=== PATIENT | male | born 1950 | race Caucasian/White ===

== ENCOUNTER → 2017-03-04 | Outpatient (CLI) | payer MEDICARE, BC ==
[2017-03-04 15:25] LABS: Blood Urea Nitrogen 23 mg/dL (9-20); Non-African American GFR(MDRD) >60 (>60 ml/min/1.73 sqM)
--- NOTE | 2017-03-04 16:48 | CT ---
EXAMINATION TYPE: CT angio chest DATE OF EXAM: 03/04/2017 COMPARISON: August 10, 2015 HISTORY: Thoracic aortic aneurysm w/o rupture CT DLP: 839 mGycm CONTRAST: CTA thoracic aorta with 3-D reconstruction is performed and with IV Contrast, patient injected with 1 00 mL of Omnipaque 350. Contrast CTA of the thoracic aorta was performed from the lung apex through the upper abdomen. 3D re construction imaging obtained at a separate workstation. CT Chest: THORACIC AORTA: Stable ascending thoracic aortic aneurysm measuring 4.1 cm at the aortic root. Aortic arch and descending thoracic aorta and a normal caliber and appearance. Mild atheromatous changes se en. There is no evidence for dissection or periaortic collection. LUNGS: The lungs are clear and free of infiltrate or atelectasis. No pulmonary nodule or mass is det ected. No pleural effusion or CT evidence of interstitial lung disease. MEDIASTINUM: No evidence for mediastinal hematoma. The heart is not enlarged. No evidence for med iastinal mass or adenopathy. HILAR STRUCTURES: No evidence for mass. No hilar adenopathy is appreciated. OTHER: 2 mm nonobstructing left renal calculus. IMPRESSION- 1. Stable ascending thoracic aortic aneurysm.
--- NOTE | 2017-03-05 10:29 | ECHOF ---
Referral Reason:I71.2 Thoracic aortic aneurysm w/o rupture MEASUREMENTS -------- HEIGHT: 152.4 cm WEIGHT: 83.9 kg BP: RVIDd: 2.8 cm (< 3.3) IVSd: 1.2 cm (0.6 - 1.1) LVIDd: 4.3 cm (3.9 - 5.3) LVPWd: 1.2 cm (0.6 - 1.1) IVSs: 1.6 cm LVIDs: 2.7 cm LVPWs: 1.2 cm LA Diam: 3.8 cm (2.7 - 3.8) LAESV Index (A-L): 27.27 ml/m Ao Diam: 4.8 cm (2.0 - 3.7) AV Cusp: 2.2 cm (1.5 - 2.6) LA Diam: 3.4 cm (2.7 - 3.8) MV EXCURSION: 23.948 mm (> 18.000) MV EF SLOPE: 135 mm/s (70 - 150) EPSS: 0.2 cm MV E Tereso: 0.67 m/s MV DecT: 178 ms MV A Tereso: 0.64 m/s MV E/A Ratio: 1.05 RAP: 5.00 mmHg RVSP: 33.38 mmHg FINDINGS -------- Sinus rhythm. This was a technically adequate study. There is mild concentric left ventricular hypertrophy. Overall left ventricular systolic function is low-normal with, an EF between 50 - 55 %. The right ventricle is normal in size. Normal LA size by volume 22+/-6 ml/m2. The right atrial size is normal. There is mild aortic regurgitation. Mild mitral annular calcification present. Mild mitral regurgitation is present. Mild tricuspid regurgitation present. There is no evidence of pulmonary hypertension. The right ventricular systolic pressure, as measured by Doppler, is 33.38mmHg. There is no pulmonic regurgitation present. Aortic Root is dilated and meausres 4.5cm There is no pericardial effusion. CONCLUSIONS -------- 1. There is mild concentric left ventricular hypertrophy. 2. There is no pulmonic regurgitation present. 3. Aortic Root is dilated and meausres 4.5cm 4. There is no pericardial effusion. 5. Overall left ventricular systolic function is low-normal with, an EF between 50 - 55 %. 6. Normal LA size by volume 22+/-6 ml/m2. 7. There is mild aortic regurgitation. 8. Mild mitral annular calcification present. 9. Mild mitral regurgitation is present. 10. Mild tricuspid regurgitation present. 11. There is no evidence of pulmonary hypertension. 12. The right ventricular systolic pressure, as measured by Doppler, is 33.38mmHg. HEALTH AND SAFETY REPRESENTATIVE: Chata Galvez RDCS
== END | disposition home or self-care (01) ==
LOC: RADECHMAIN 14:48
PROVIDERS: ATTEND Internal Medicine
DX: I71.2 Thoracic aortic aneurysm, without rupture (principal); I08.3 Combined rheumatic disorders of mitral, aortic and tricuspid valves
CPT/HCPCS: 93306; 82565; 84520; 71275; 36415; Q9967

== ENCOUNTER → 2018-02-26 | Outpatient (CLI) | payer MEDICARE, BC ==
--- NOTE | 2018-02-27 10:29 | CT ---
EXAMINATION TYPE: CT angio chest DATE OF EXAM: 02/26/2018 COMPARISON: 03/04/2017 HISTORY: 67-year-old male Follow up thoracic aortic aneurysm. TECHNIQUE: Contiguous axial scanning of the chest performed without and with IV Contrast, patient inj ected with 100 mL of Isovue 370. Coronal/sagittal MIP reconstructions performed. 3-D reconstructions generated on a dedicated independent workstation. CT DLP: 648.6 mGycm Automated exposure control for dose reduction was used. FINDINGS: Heart is normal size without pericardial effusion. The aortic root measures 4.9 x 4.7 cm on coronal and sagittal MIP images, respectively. Previously, i t is remeasured at 4.8 x 4.8 cm. Not significantly changed. Ectatic ascending aorta measuring 3.9 cm is unchanged. Conventional arterial vessel branching anatomy. Mid descending thoracic aorta is ectatic at 2.8 cm, unchanged. The lower descending thoracic aorta is ectatic at 2.6 cm, unchanged. No thoracic lymphadenopathy. Evaluation of the lung shows no consolidation or pleural effusion. Visualized upper abdomen shows mild atherosclerotic calcification at the origin of the celiac axis. Bones: Endplate spondylosis mid to lower thoracic spine. No osseous destructive process. IMPRESSION: 1. RELATIVELY STABLE ANEURYSM OF THE AORTIC ROOT (4.9 X 4.7 CM MEASURED ON CORONAL AND SAGITTAL SE SHAHID), RELATIVELY UNCHANGED, REMEASURED AT 4.8 X 4.8 CM ON 03/04/2017. 2. THE REMAINDER OF THE THORACIC AORTA IS ECTATIC (ASCENDING 3.9 CM AND DESCENDING 2.8 CM).
== END | disposition home or self-care (01) ==
LOC: RADCTMAIN 16:28
PROVIDERS: ATTEND Internal Medicine
DX: I77.810 Thoracic aortic ectasia (principal)
CPT/HCPCS: 71275; Q9967

== ENCOUNTER → 2018-09-29 | Outpatient (CLI) | payer MEDICARE, BC | END | disposition home or self-care (01) | LOC: LABWHC1 10:56 | PROVIDERS: ATTEND Urology | DX: R97.20 Elevated prostate specific antigen [PSA] (principal) | CPT/HCPCS: 36415; 84153 ==

== ENCOUNTER → 2019-02-28 | Outpatient (CLI) | payer MEDICARE, BC ==
--- NOTE | 2019-03-01 08:38 | CT ---
EXAMINATION TYPE: CT angio chest DATE OF EXAM: 02/28/2019 COMPARISON: 02/26/2018 HISTORY: Follow up Aneurysm per patient CT DLP: 284.7 mGycm CONTRAST: CTA thoracic aorta with 3-D reconstruction is performed and with IV Contrast, patient injected with 1 00 mL of Isovue 370. Contrast CTA of the thoracic aorta was performed from the lung apex through the upper abdomen. 3D re construction imaging obtained at a separate workstation. CT Chest: THORACIC AORTA: Stable aortic root aneurysm measuring 1.9 x 4.6 cm versus 4.9 x 4.7 cm previously. Ec henry of the remaining thoracic aorta. Mild atheromatous changes seen. There is no evidence for diss ection or periaortic collection. LUNGS: The lungs are clear and free of infiltrate or atelectasis. No pulmonary nodule or mass is det ected. No pleural effusion or CT evidence of interstitial lung disease. MEDIASTINUM: No evidence for mediastinal hematoma. The heart is not enlarged. No evidence for med iastinal mass or adenopathy. HILAR STRUCTURES: No evidence for mass. No hilar adenopathy is appreciated. OTHER: No significant abnormality. IMPRESSION- 1. Stable aortic root aneurysm.
== END | disposition home or self-care (01) ==
LOC: RADCTMAIN 16:26
PROVIDERS: ATTEND Internal Medicine
DX: I71.2 Thoracic aortic aneurysm, without rupture (principal); Q25.43 Congenital aneurysm of aorta
CPT/HCPCS: 82565; 84520; 71275; 36415; Q9967

== ENCOUNTER → 2019-03-21 | Outpatient (CLI) | payer MEDICARE, BC | END | disposition home or self-care (01) | LOC: LABWHC1 09:22 | PROVIDERS: ATTEND Urology | DX: R97.20 Elevated prostate specific antigen [PSA] (principal) | CPT/HCPCS: 36415; 84153 ==

== ENCOUNTER → 2019-09-21 | Outpatient (CLI) | payer MEDICARE, BC | END | disposition home or self-care (01) | LOC: LABWHC1 08:52 | PROVIDERS: ATTEND Urology | DX: R97.20 Elevated prostate specific antigen [PSA] (principal) | CPT/HCPCS: 36415; 84153 ==

== ENCOUNTER → 2019-10-24 | Outpatient (CLI) | payer MEDICARE, BC | END | disposition home or self-care (01) | LOC: LABWHC1 15:07 | PROVIDERS: ATTEND Urology | DX: R97.20 Elevated prostate specific antigen [PSA] (principal) | CPT/HCPCS: 36415; 84153 ==

== ENCOUNTER → 2020-04-20 | Outpatient (CLI) | payer MEDICARE, BC | END | disposition home or self-care (01) | LOC: LABWHC1 09:18 | PROVIDERS: ATTEND Urology | DX: R97.20 Elevated prostate specific antigen [PSA] (principal) | CPT/HCPCS: 36415; 84153 ==

== ENCOUNTER → 2020-10-18 | Outpatient (CLI) | payer MEDICARE, BC | END | disposition home or self-care (01) | LOC: LABWHC1 07:39 | PROVIDERS: ATTEND Urology | DX: R97.20 Elevated prostate specific antigen [PSA] (principal) | CPT/HCPCS: 36415; 84153 ==

== ENCOUNTER → 2021-01-22 | Outpatient (CLI) | payer MEDICARE, BC ==
--- NOTE | 2021-01-24 10:56 | MR ---
EXAMINATION TYPE: MR Prostate wo/w con DATE OF EXAM: 01/22/2021 COMPARISON: None. IMAGE QUALITY: . INDICATION: Elevated PSA. PSA: 8.6 ng/ml on October 18, 2020 Recent Biopsy and Date: October 15, 2010 Pathology Report (If Applicable): Benign all sites. TECHNIQUE: Examination was performed using a 3T MRI without an endorectal coil. Multiparametric imaging was perf ormed with T2 mutliplanar sequences, axial diffusion weighted imaging and dynamic contrast enhanced i maging, utilizing 8.5 mL intravenous Gadavist gadolinium contrast. FINDINGS: There is no clinically significant cancer identified. PROSTATE VOLUME: 5.3 cm SI x 5.6 cm AP x 5.6 cm LR Vol= 86.98 cc PSA DENSITY: 0.100 ng/ml/cc Predicted PSA = 10.43 Peripheral zone shows no suspicious areas of diminished signal on ADC mapping. No areas of increased signal or restricted diffusion noted on DWI. Markedly heterogeneous enlarged transitional zone without suspicious areas of T2 hypointensity Prostate capsule is intact. Seminal vesicles are somewhat atrophic. Correlate distention of bladder w ith mild to moderate wall thickening and trabeculation. No concerning pelvic fluid collection. No nanette picious pelvic adenopathy. IMPRESSION: Enlarged prostate consistent with BPH. A focus of clinically significant cancer is not identified. Highest Assessment Category: 1 MRI Stage: T0 N0 M0 based on review of pelvic images. False negative rates for MRI range from 5-20% depending on risk profile. Assessment Categories: 1 ? Very low (clinically significant cancer is highly unlikely to be present) 2 ? Low (clinically significant cancer is unlikely to be present) 3 ? Intermediate (the presence of clinically significant cancer is equivocal) 4 ? High (clinically significant cancer is likely to be present) 5 ? Very high (clinically significant cancer is highly likely to be present)
== END | disposition home or self-care (01) ==
LOC: RADMRIMAIN 08:00
PROVIDERS: ATTEND Urology
DX: N40.0 Benign prostatic hyperplasia without lower urinary tract symptoms (principal)
CPT/HCPCS: 72197; A9585

== ENCOUNTER → 2021-03-25 | Outpatient (CLI) | payer MEDICARE, BC ==
--- NOTE | 2021-03-25 11:11 | ECHOF ---
Referral Reason:aortic valve regurgitation MEASUREMENTS -------- HEIGHT: 177.8 cm WEIGHT: 86.2 kg BP: RVIDd: 3.7 cm (< 3.3) IVSd: 1.4 cm (0.6 - 1.1) LVIDd: 4.4 cm (3.9 - 5.3) LVPWd: 1.5 cm (0.6 - 1.1) IVSs: 1.8 cm LVIDs: 3.1 cm LVPWs: 1.9 cm LA Diam: 3.8 cm (2.7 - 3.8) LAESV Index (A-L): 28.14 ml/m Ao Diam: 4.5 cm (2.0 - 3.7) AV Cusp: 2.1 cm (1.5 - 2.6) MV EXCURSION: 16.659 mm (> 18.000) MV EF SLOPE: 61 mm/s (70 - 150) EPSS: 0.8 cm MV E Tereso: 0.93 m/s MV DecT: 152 ms MV A Tereso: 0.66 m/s MV E/A Ratio: 1.40 AR PHT: 1110 ms RAP: 5.00 mmHg RVSP: 36.08 mmHg FINDINGS -------- Sinus rhythm. This was a technically adequate study. The left ventricular size is normal. There is moderate concentric left ventricular hypertrophy. O verall left ventricular systolic function is normal with, an EF between 60 - 65 %. The right ventricle is mildly enlarged. Normal LA size by volume 22+/-6 ml/m2. The right atrium is normal in size. Interatrial and interventricular septum intact. There is mild aortic regurgitation. There is trace to mild mitral regurgitation. Mild tricuspid regurgitation present. There is mild pulmonary hypertension. The right ventricular systolic pressure, as measured by Doppler, is 36.08mmHg. Trace/mild (physiologic) pulmonic regurgitation. The aortic root is dilated measuring 4.5cm. Normal inferior vena cava with normal inspiratory collapse consistent with estimated right atrial pre ssure of 5 mmHg. There is no pericardial effusion. CONCLUSIONS -------- 1. The left ventricular size is normal. 2. There is moderate concentric left ventricular hypertrophy. 3. Overall left ventricular systolic function is normal with, an EF between 60 - 65 %. 4. The right ventricle is mildly enlarged. 5. Normal LA size by volume 22+/-6 ml/m2. 6. The right atrium is normal in size. 7. There is mild aortic regurgitation. 8. There is trace to mild mitral regurgitation. 9. Mild tricuspid regurgitation present. 10. There is mild pulmonary hypertension. 11. The right ventricular systolic pressure, as measured by Doppler, is 36.08mmHg. 12. Trace/mild (physiologic) pulmonic regurgitation. 13. The aortic root is dilated measuring 4.5cm. 14. There is no pericardial effusion. GAS TENDER: Anna Thompson RDCS
--- NOTE | 2021-03-25 11:28 | CT ---
CT CHEST FOR PULMONARY EMBOLISM. EXAMINATION TYPE: CT angio chest DATE OF EXAM: 03/25/2021 INDICATION: Thoracic aortic aneurysm CT DLP: 189.7 mGycm, Automated exposure control for dose reduction was used. CONTRAST: Patient injected with 100 mL of Isovue 370. COMPARISON: 04/06/2020 TECHNIQUE: CT of the chest is performed on a spiral scan at 2 mm thick sections. Study is performed with intravenous contrast timed for evaluation for pulmonary embolism. This will limit additional po rtions of the evaluation. 3-D MIP images reconstructed by the technologist are reviewed on the compu ter in the coronal and sagittal planes. FINDINGS: No obvious persistent filling defects are evident to suggest an acute pulmonary embolism. No aortic d issection is evident. There is a three-vessel arch. No mediastinal or hilar adenopathy enlarged by CT criteria is evident. The ascending aorta diameter at the level of the main pulmonary artery is 3.9 cm. The main pulmonary artery diameter at the bifur cation is 2.7 cm. The aorta at the aortic root is 5.1 cm. The aorta at the bifurcation of the main pulmonary arteries 3 .9 cm. Aortic arch transverse dimension is 2.7 cm. The aorta at the diaphragm is 2.7 cm. Lung windows are clear. Limited CT section through the upper abdomen are unremarkable. IMPRESSIONS: 1. Ascending thoracic aortic aneurysm. This is largest at the aortic root measuring 5.1 cm and tapers to the diaphragm.
== END | disposition home or self-care (01) ==
LOC: RADECHMAIN 07:41
PROVIDERS: ATTEND Surgery
DX: I71.2 Thoracic aortic aneurysm, without rupture (principal); I27.20 Pulmonary hypertension, unspecified; I08.1 Rheumatic disorders of both mitral and tricuspid valves
CPT/HCPCS: 93306; 82565; 84520; 71275; 36415; Q9967

== ENCOUNTER → 2021-04-23 | Outpatient (CLI) | payer MEDICARE, BC | END | disposition home or self-care (01) | LOC: LABWHC1 10:49 | PROVIDERS: ATTEND Urology | DX: R97.20 Elevated prostate specific antigen [PSA] (principal) | CPT/HCPCS: 36415; 84153 ==

== ENCOUNTER → 2021-05-22 | Outpatient (CLI) | payer MEDICARE, BC ==
--- NOTE | 2021-05-29 09:48 | P.ARTDOP ---
Arterial Doppler LOWER EXTREMITY ARTERIAL DOPPLER: DATE OF SERVICE: 05/22/2021 Reason for study: Suspected lower extremity occlusive disease. Doppler waveforms: Multiphasic bilaterally throughout. Pulse volume recording: []. Pressure gradients: None. Ankle-brachial indices: Greater than 1 bilaterally. Toe brachial indices: 0.86 on the right, 0.86 on the left Impression: Normal study.
== END | disposition home or self-care (01) ==
LOC: RADUSWWP 11:46
PROVIDERS: ATTEND Internal Medicine
DX: Z03.89 Encounter for observation for other suspected diseases and conditions ruled out (principal)
CPT/HCPCS: 93922

== ENCOUNTER → 2022-02-10 | Outpatient (CLI) | payer MEDICARE, BC ==
--- NOTE | 2022-02-10 09:01 | US ---
EXAMINATION TYPE: US carotid duplex BILAT DATE OF EXAM: 02/10/2022 COMPARISON: NONE CLINICAL HISTORY: I65.23. dizziness EXAM MEASUREMENTS: RIGHT: Peak Systolic Velocity (PSV) cm/sec ----- Right CCA: 78.6 ----- Right ICA: 81.9 ----- Right ECA: 125 ICA/CCA ratio: 1.04 RIGHT: End Diastole cm/sec ----- Right CCA: 20.8 ----- Right ICA: 24.0 ----- Right ECA: 17.5 LEFT: Peak Systolic Velocity (PSV) cm/sec ----- Left CCA: 92.2 ----- Left ICA: 101 ----- Left ECA: 107 ICA/CCA ratio: 1.10 LEFT: End Diastole cm/sec ----- Left CCA: 26.6 ----- Left ICA: 38.3 ----- Left ECA: 18.8 VERTEBRALS (direction of flow): Right Vertebral: Antegrade Left Vertebral: Antegrade Rhythm: Normal Mild plaque bilateral bifurcations. no evidence of increased velocities. IMPRESSION: 1. Bilateral atherosclerotic plaque with no significant hemodynamic stenosis. Criteria for Assigning % of Stenosis / Diameter reduction (Estimation based on the indirect measurements of the internal carotid artery velocities (ICA PSV). 1. Normal (no stenosis)=ICA PSV < 125 cm/s: ratio < 2.0: ICA EDV<40 cm/s. 2. Less than 50% stenosis=ICA PSV < 125 cm/s: ratio < 2.0: ICA EDV<40 cm/s. 3. 50 to 69% stenosis=ICA PSV of 125 to 230 cm/s: ration 2.0 ? 4.0: ICA EDV 40-100 cm/s. 4. Greater than 70% stenosis to near occlusion= ICA PSV > 230 cm/s: ratio > 4.0: ICA EDV > 100 cm/s. 5. Near occlusion= ICA PSV velocities may be low or undetectable: variable ratio and ICA EDV. 6. Total occlusion=unable to detect flow.
--- NOTE | 2022-02-10 12:01 | NM ---
EXAMINATION TYPE: NM stress cardiolite complete DATE OF EXAM: 02/10/2022 COMPARISON: NONE HISTORY: Chest pain TECHNIQUE: After the intravenous administration of 10.17 mCi Tc 99m Sestamibi - Rest images obtained 60 minutes post injection. The patient exercised using a MONY protocol and 1 minute prior to peak exercise was injected with 26.2 mCi Tc 99m Sestamibi - Stress images obtained 15 minutes post inject ion. FINDINGS: Targeted heart rate was achieved during performance of the study. Review of stress and rest SPECT elmo ges demonstrates no distinct perfusion abnormality. Gated analysis shows normal wall motion with an estimated left ventricular ejection fraction of 61 %. IMPRESSION: No scintigraphic evidence for reversible ischemia
--- NOTE | 2022-02-10 12:09 | CA ---
Exercise Stress Test Report Name: Jerrod Pyle Exam Date: 02/10/2022 10:26 Exam Location: [facility] Ht (in): 70 Wt (lb): 185 BSA: 2.02 Ordering Phys: Ramon Spicer MD Referring Phys: Nayan,, Technologist: VASYL,, Age: 71 Gender: M : 1950 Procedure CPT: Indications: I20.8 I65.23 ICD-10 Codes: Patient History: Medications: LOSARTAN,,,,,, OMEPRAZOLE,,,,,, ASA,,,,,, VIT D,,,,,, ATORVASTATIN,,,,,, HYDROCHLORAT,,,,, Meds past 24 hrs: Pretest Chest Pain: STRESS TEST Kj Protocol Exercise Duration (min:sec): 09:[address] Depressions (mm): Angina Score: Dumont Score: Resting HR (bpm): 62 Peak HR (bpm): 144 Resting BP (mmHg): 132 / 69 Peak BP (mmHg): 172 / 76 MPHR: 149 Target HR: 127 % MPHR: 97 METS: 10.3 Total Dose: Peak Dose: Atropine: Double Product: 22067 BP Response: Stress Termination: Reached target heart rate Stress Symptoms: Stress Summary: ECG ANALYSIS Resting ECG: Sinus rhythm with normal NM interval and QRS duration Stress ECG: Stress EKG did not reveal any changes of ischemia. Occasional PVCs noted CONCLUSIONS #1. Negative stress test. #2. Patient did not experience any chest pain. #3. Occasional PVCs noted. #4. Patient's exercise capacity is good Dr. Aubree Desir MD (Electronically Signed) Final Date: 10 February 2022 12:09
== END | disposition home or self-care (01) ==
LOC: RADNMMAIN 07:52
PROVIDERS: ATTEND Internal Medicine
DX: I65.23 Occlusion and stenosis of bilateral carotid arteries (principal); I49.3 Ventricular premature depolarization
CPT/HCPCS: 93017; 93880; 78452; A9500

== ENCOUNTER → 2022-03-18 | Outpatient (CLI) | payer MEDICARE, BC ==
--- NOTE | 2022-03-18 14:40 | CT ---
EXAMINATION TYPE: CT angio chest CT DLP: 709.70 mGycm, Automated exposure control for dose reduction was used. DATE OF EXAM: 03/18/2022 2:18 PM COMPARISON: CT chest most recent 03/25/2021 CLINICAL INDICATION:Male, 71 years old with history of I71.2 thoracic aortic aneurysm; Thoracic aorti c aneurysm TECHNIQUE/CONTRAST: CTA scan of the thorax is performed without and with IV Contrast, patient injected with 100 mL of Iso erika 370, pulmonary embolism protocol. MIP images are created and reviewed. FINDINGS: Lungs/Pleura: No evidence of focal consolidation, pleural effusion or pneumothorax. Airway: Large airways are patent. Heart: Heart is within normal limits for size.. Vasculature: No evidence of aortic aneurysm. Stable ascending thoracic aorta dilation up to 4.6 cm. T here is no evidence for a filling defect within the pulmonary vasculature to suggest acute pulmonary embolism. The pulmonary artery is of normal size. Mediastinum: No gross evidence of adenopathy. Musculoskeletal: No acute osseous abnormalities. Mild multilevel disc degeneration changes. There is straightening of the thoracic spine. Soft Tissues: Unremarkable. Lower neck: No significant findings. Upper Abdomen: No significant findings. IMPRESSION: Stable ascending thoracic aorta aneurysmal dilation up to 4.6 cm when measuring similarly and orthogo johanna.
== END | disposition home or self-care (01) ==
LOC: RADCTMAIN 13:01
PROVIDERS: ATTEND Surgery
DX: I71.2 Thoracic aortic aneurysm, without rupture (principal)
CPT/HCPCS: 82565; 84520; 71275; 36415; Q9967

== ENCOUNTER → 2022-04-22 | Outpatient (CLI) | payer MEDICARE, BC ==
--- NOTE | 2022-04-22 10:45 | CA ---
Transthoracic Echo Report Name: Jerrod Pyle Age: 71 Gender: M : 1950 Exam Date: 04/22/2022 09:56 Exam Location: [facility] Ht (in): 71 Wt (lb): 190 Ordering Physician: Ramon Spicer MD Attending/Referring Phys: Electrical Contacts Adjuster Modesta Cristina RDCS Procedure CPT: Indications: I71.2 thoracic aortic aneurysm Cardiac Hx: Hx of dialated aorta Technical Quality: Good Contrast 1: Total Dose (mL): Contrast 2: Total Dose (mL): MEASUREMENTS (Male / Female) Normal Values 2D ECHO LV Diastolic Diameter PLAX 4.5 cm 4.2 - 5.9 / 3.9 - 5.3 cm LV Systolic Diameter PLAX 2.0 cm IVS Diastolic Thickness 1.2 cm 0.6 - 1.0 / 0.6 - 0.9 cm LVPW Diastolic Thickness 1.2 cm 0.6 - 1.0 / 0.6 - 0.9 cm LV Relative Wall Thickness 0.5 RV Internal Dim ED PLAX 3.5 cm LA Volume 43.7 cm??? 18 - 58 / 22 - 52 cm??? M-MODE Aortic Root Diameter MM 5.0 cm LA Systolic Diameter MM 3.0 cm LA Ao Ratio MM 0.6 MV E Point Septal Separation 1.0 cm AV Cusp Separation MM 1.9 cm DOPPLER AV Peak Velocity 114.0 cm/s AV Peak Gradient 5.2 mmHg AI Peak Velocity 232.1 cm/s AI Peak Gradient 21.5 mmHg AI Pressure Half Time 774.3 ms MV Area PHT 3.7 cm??? MR Peak Velocity 220.4 cm/s MR Peak Gradient 19.4 mmHg Mitral E Point Velocity 69.3 cm/s Mitral A Point Velocity 54.2 cm/s Mitral E to A Ratio 1.3 MV Deceleration Time 207.5 ms MV E' Velocity 7.9 cm/s Mitral E to MV E' Ratio 8.8 TR Peak Velocity 175.2 cm/s TR Peak Gradient 12.3 mmHg Right Ventricular Systolic Press 17.3 mmHg PV Peak Velocity 96.5 cm/s PV Peak Gradient 3.7 mmHg PI Peak Gradient 10.9 mmHg FINDINGS Left Ventricle Mildly increased septal wall thickness. Left ventricular ejection fraction is estimated at 55-60_%. Left ventricular cavity size normal. Right Ventricle The right ventricle is normal in size and function. Right Atrium The right atrium is normal in size. Left Atrium The left atrium is normal in size. Mitral Valve Structurally normal mitral valve without significant stenosis or prolapse. There is trace mitral regurgitation. Aortic Valve Structurally normal aortic valve without significant sclerosis or stenosis. There is mild aortic regurgitation. Tricuspid Valve Structurally normal tricuspid valve without significant stenosis. Pulmonary artery systolic pressure is normal. Trace tricuspid regurgitation. Pulmonic Valve Structurally normal pulmonic valve without significant stenosis. There is no pulmonic regurgitation. Pericardium Normal pericardium without effusion. Aorta Dilatation of the Aortic root, sinuses, and acscending measuring from 5.0 at the root to 5.5 cm ascending. CONCLUSIONS Normal left ventricular dimension and systolic function Mild aortic regurgitation Previewed by: Dr. Tutu Loyola MD (Electronically Signed) Final Date: 22 April 2022 10:44
== END | disposition home or self-care (01) ==
LOC: RADECHMAIN 09:25
PROVIDERS: ATTEND Internal Medicine
DX: I35.1 Nonrheumatic aortic (valve) insufficiency (principal)
CPT/HCPCS: 93306

== ENCOUNTER → 2022-07-18 | Outpatient (CLI) | payer MEDICARE, BC ==
[2022-07-18 10:50] LABS: Basophils # (A) 0.05 X 10*3/uL (0.00-0.10); Basophils % (A) 0.6 %; Eosinophils # (A) 0.24 X 10*3/uL (0.04-0.35); HCT 41.5 % (39.6-50.0); HGB 13.5 g/dL (13.0-17.0); Immature Grans, Automated 0.2 %; Lymphocytes # (A) 2.02 X 10*3/uL (0.90-5.00); Lymphocytes % (A) 25.1 %; MCH 27.4 pg (27.0-32.0); MCHC 32.5 g/dL (32.0-37.0); MCV 84.2 fL (80.0-97.0); Mean Platelet Volume 9.6 fL (9.5-12.2); Monocytes # (A) 0.99 X 10*3/uL (0.20-1.00); Monocytes % (A) 12.3 %; NRBC Per 100 WBC 0 /100 WBCS (0.0-0.0); Neutrophils # (A) 4.74 X 10*3/uL (1.80-7.70); Neutrophils % (A) 58.8 %; Platelet Count 267 X 10*3/uL (140-440); RBC 4.93 X 10*6/uL (4.40-5.60); WBC 8.06 X 10*3/uL (4.50-10.00)
== END | disposition home or self-care (01) ==
LOC: LABPAT 07:46
PROVIDERS: ATTEND Surgery
DX: Z01.812 Encounter for preprocedural laboratory examination (principal); K40.90 Unilateral inguinal hernia, without obstruction or gangrene, not specified as recurrent; D64.9 Anemia, unspecified; F17.200 Nicotine dependence, unspecified, uncomplicated
CPT/HCPCS: 36415; 85025

== ENCOUNTER 2022-07-28 09:59 | Day surgery (SDC) | payer MEDICARE, BC ==
--- NOTE | 2022-07-28 07:37 | P.GSHP ---
History of Present Illness H&P Date: 07/28/22 Chief Complaint: Left inguinal hernia 72-year-old male here today for surgical repair left inguinal hernia. Patient with history of previous open right inguinal hernia in the past. Was seen in the office in October. Since then the patient's hernia has been bothering him more and increase in size. Has been present for the last 2-3 years. Also with history of previous bowel resection through a right lower quadrant abdominal incision. Past Medical History Past Medical History: Hypertension Additional Past Medical History / Comment(s): marfans syndrome, aortic root aneurysm History of Any Multi-Drug Resistant Organisms: None Reported Past Surgical History: Bowel Resection, Hernia Repair Additional Past Surgical History / Comment(s): lens replacement due to marfan's,. leision in colon was not malignant Past Anesthesia/Blood Transfusion Reactions: No Reported Reaction Smoking Status: Never smoker Medications and Allergies Home Medications Medication Instructions Recorded Confirmed Type Aspirin [Adult Low Dose Aspirin EC] 81 mg PO DAILY 07/24/22 07/24/22 History Atorvastatin Calcium 40 mg PO HS 07/24/22 07/24/22 History Cholecalciferol [Vitamin D3 (25 2,000 units PO DAILY 07/24/22 07/24/22 History Mcg = 1000 Iu)] Losartan Potassium 50 mg PO BID 07/24/22 07/24/22 History Omeprazole 40 mg PO DAILY 07/24/22 07/24/22 History hydroCHLOROthiazide 12.5 mg PO DAILY 07/24/22 07/24/22 History Allergies Allergy/AdvReac Type Severity Reaction Status Date / Time No Known Allergies Allergy Verified 07/24/22 13:50 Surgical - Exam Physical exam: General: Well-developed, well-nourished HEENT: Normocephalic, sclerae nonicteric Abdomen: Nontender, nondistended, prior scars noted, small to moderate sized reducible left inguinal hernia Extremities: No edema Neuro: Alert and oriented Assessment and Plan (1) Inguinal hernia Narrative/Plan: 72-year-old male with reducible left inguinal hernia. We'll proceed with laparoscopic da Faustino assisted repair left inguinal hernia with mesh, possible open, possible bilateral. Risks of bleeding, infection, recurrence, bladder and bowel injury, numbness, nerve injury, conversion to an open procedure were discussed with the patient. The patient understands and wishes to proceed. Status: Acute Code(s): K40.90 - UNIL INGUINAL HERNIA, W/O OBST OR GANGR, NOT SPCF RECUR SNOMED Code(s): 262805517
[~2022-07-28 09:59] MED LIST: ACETAMINOPHEN TAB 500 MG TAB PO PRN; DEXAMETHASONE SOD PHOSPHATE 4 MG/ML 1 ML VIAL IV ONE; HEPARIN SODIUM,PORCINE/PF 5,000 UNIT/0.5 ML SYRINGE SQ PRN; HYDROmorphone 0.5 MG/0.5 ML SYRINGE IVP PRN; LACTATED RINGERS 1,000 ML IV SCH; LIDOCAINE 1% (10MG/ML) FOR IV START INTRADERMA PRN; MIDAZOLAM 2 MG/2 ML VIAL IV PRN; ONDANSETRON 4 MG/2 ML VIAL IVP ONE
[2022-07-28 10:28] VITALS: RESP 16
[2022-07-28] MEDS ORDERED: TAMSULOSIN 0.4 MG CAP.ER.24H PO ONE (11:28)
[2022-07-28] MEDS ORDERED: BUPIVACAIN-EPI 0.25%-1:200,000 30 ML VIAL SQ ONE ×2 (11:48→12:16)
[2022-07-28] MEDS ORDERED: SUCCINYLCHOLINE CHLORIDE 200 MG/10 ML VIAL IV ONE (11:51)
[2022-07-28] MEDS ORDERED: ROCURONIUM 10 MG/ML (5 ML VIAL) IV ONE (11:51)
[2022-07-28] MEDS ORDERED: fentaNYL (PF) 50 MCG/ML 2 ML AMP ONE (11:51)
[2022-07-28] MEDS ORDERED: HYDROmorphone (PF) 1 MG/ML ONE (11:51)
[2022-07-28] MEDS ORDERED: MIDAZOLAM 2 MG/2 ML VIAL ONE (11:51)
[2022-07-28] MEDS ORDERED: NEOSTIGMINE 1 MG/ML 10 ML VIAL ONE (11:51)
[2022-07-28] MEDS ORDERED: LIDOCAINE 2% INJ 20 MG/ML (2 ML VIAL) ONE (11:51)
[2022-07-28] MEDS ORDERED: GLYCOPYRROLATE 0.2 MG/ML 2 ML VIAL ONE (11:51)
[2022-07-28] MEDS ORDERED: PROPOFOL 10 MG/ML 20 ML VIAL IV ONE (11:51)
[2022-07-28] MEDS ORDERED: LACTATED RINGERS 1,000 ML IV ONE (12:35)
[2022-07-28] MEDS ORDERED: ACETAMINOPHEN TAB 325 MG TAB PO SCH (14:00)
[2022-07-28 14:01] VITALS: TEMP 97.4
--- NOTE | 2022-07-28 14:08 | P.OP ---
Date of Procedure: 07/28/22 Procedure(s) Performed: PREOPERATIVE DIAGNOSIS: Left inguinal hernia POSTOPERATIVE DIAGNOSIS: Left direct inguinal hernia, intra-abdominal adhesions PROCEDURE: Laparoscopic da Faustino assisted repair left inguinal hernia with mesh, laparoscopic lysis of adhesions SURGEON: Dr. Fernandes ANESTHESIA: General OPERATIVE PROCEDURE DETAILS: Patient was placed in the operating table in the supine position. The patient was placed under general anesthesia. The abdomen was prepped and draped in usual sterile fashion. A small curvilinear supraumbilical incision was made. The fascia was retracted anteriorly with Mark forceps. The Veress needle was inserted. The saline drop test was normal. Insufflation took place to 15 mmHg. An 8 mm trocar was placed into the peritoneal cavity. 2 additional 8 mm trochars were placed in the right upper quadrant and left upper quadrant under visualization. The robotic arms were then brought in and docked into place. The fenestrated bipolar was used in the left arm and the laparoscopic adriana was utilized in the right arm. A 30 8 mm scope was used in the up position. The peritoneal cavity was inspected. The patient had some adhesions in the right mid abdomen from the previous right lower quadrant transverse incision. Omentum was stuck to the abdominal wall and was able to be lysed using combination of blunt dissection and cautery. There was no hernia on the right-hand side. On the left-hand side there was a moderate sized direct inguinal hernia. The peritoneum was incised in a horizontal fashion cephalad to the internal inguinal ring. Following that careful dissection of the preperitoneal space took place. This took place using both electrocautery, sharp dissection but primarily blunt dissection. Visualization of the pubic tubercle and Lisandro's ligament took place medially. Full dissection took place laterally as well. The hernia sac was fully dissected. Once we had adequate space the large Pro transmission mechanic mesh was advanced into the preperitoneal space and flattened out appropriately to cover all potential hernia sites. A short running absorbable 30V lock suture was used along the Lisandro's ligament extending to the retropubic location extending superiorly. The peritoneal defect was then closed using a absorbable 2-0 VLok suture. The hernia sac was incorporated into the peritoneal closure to help prevent future recurrence. The pneumoperitoneum was then evacuated. The skin of all 3 sites was closed using a 4-0 Monocryl stitch. Skin glue was then applied. TYPE OF MESH USED: Large Pro transmission mechanic LOCATION OF MESH: Preperitoneal FIXATION: None PREOPERATIVE DISCUSSION ON SMOKING CESSASTION: Yes PREOPERATIVE DISCUSSION ON MORBID OBESITY: Yes PREOPERATIVE DISCUSSION ON APPROPRIATE USE OF NARCOTIC USE: Yes PREOPERATIVE EDUCATION: Multi Modal, Smoking Cessation and Weight Loss with BMI over 35. DISPOSITION: Stable to recovery room
[2022-07-28] MEDS ORDERED: IBUPROFEN 600 MG TAB PO SCH (17:00)
[2022-07-28 18:06] VITALS: BP 134/78; PULSE 89
== END 2022-07-28 18:45 | disposition home or self-care (01) ==
LOC: OR 09:59
PROVIDERS: ATTEND Surgery
DX: K40.90 Unilateral inguinal hernia, without obstruction or gangrene, not specified as recurrent (principal); I10 Essential (primary) hypertension; Q87.40 Marfan syndrome, unspecified; Q25.43 Congenital aneurysm of aorta; Z98.84 Bariatric surgery status; Z90.49 Acquired absence of other specified parts of digestive tract; Z79.82 Long term (current) use of aspirin; Z79.899 Other long term (current) drug therapy; Z79.1 Long term (current) use of non-steroidal anti-inflammatories (NSAID)
CPT/HCPCS: 86900; 86901; 86850; 49650; J1100; J0690; J2405; J1170; J1644

== ENCOUNTER 2023-05-22 06:27 | Day surgery (SDC) | payer MEDICARE, BC ==
[2023-05-20 10:45] VITALS: BMI 27.2
[~2023-05-22 06:27] MED LIST changes: -ACETAMINOPHEN TAB 500 MG TAB PO PRN; -DEXAMETHASONE SOD PHOSPHATE 4 MG/ML 1 ML VIAL IV ONE; -HEPARIN SODIUM,PORCINE/PF 5,000 UNIT/0.5 ML SYRINGE SQ PRN; -HYDROmorphone 0.5 MG/0.5 ML SYRINGE IVP PRN; -MIDAZOLAM 2 MG/2 ML VIAL IV PRN; -ONDANSETRON 4 MG/2 ML VIAL IVP ONE
[2023-05-22 07:02] VITALS: TEMP 97.4
[2023-05-22] MEDS ORDERED: PROPOFOL 10 MG/ML 20 ML VIAL IV ONE (07:32)
[2023-05-22] MEDS ORDERED: LIDOCAINE 2% INJ 20 MG/ML (2 ML VIAL) ONE (07:32)
--- NOTE | 2023-05-22 07:57 | P.PCN ---
Date of Procedure: 05/22/23 Procedure(s) Performed: Brief history: Patient is a pleasant 72-year-old white male scheduled for an elective upper endoscopy as well as colonoscopy as a part of evaluation of GERD and screening for colon cancer. He had prior history of colon polyps 15 years ago for which he underwent right colon resection. Procedure performed: Esophagogastroduodenoscopy with biopsy Colonoscopy with biopsy Preoperative diagnosis: GERD Screening for colon cancer/history of colon polyps Anesthesia: MAC Procedure: After informed consent was obtained from the patient was brought into the endoscopy unit and IV sedation was administered by anesthesia under continuous monitoring. Initially upper endoscopy was done. The Olympus GF 160 video endoscope was inserted inserted into the mouth and esophagus intubated without any difficulty and was gradually advanced into the stomach and duodenum and carefully examined. The bulb and second part of the duodenum appeared normal. The scope was then withdrawn into the stomach adequately insufflated with air and upon careful examination the antrum had mild antral gastritis and biopsies were done from this area. In the body the stomach there were small gastric polyps which were biopsied. Rest of the body, cardia and fundus appeared normal. The scope was then withdrawn into the esophagus. The GE junction was located at 40 cm to the incisors. It appeared regular with no erythema erosions or ulcerations. Rest of the esophagus appeared normal. Patient tolerated the procedure well. At this time the patient continued to remain sedation. Initial digital rectal examination was normal. Olympus CF 160 video colonoscope was then inserted into the rectum and gradually advanced to the right colon where the ileocolic anastomosis associated appeared normal. Mucosa of the, transverse colon, descending colon, sigmoid colon and rectum appeared normal. Scattered sigmoid diverticulosis. 3-4 mm proximal rectal polyp seen which was biopsied. Retroflexion was performed in the rectum and no lesions were noted. Patient tolerated the procedure well. Impression: 1. Upper endoscopy revealed small gastric polyp and mild antral gastritis 2. Colonoscopy revealed 3-4 mm rectal polyp status post cold biopsy, sigmoid diverticulosis and normal ileocolic anastomosis Recommendations: Findings of this examination were discussed with the patient as well as his family. He was advised to follow with the biopsy results. Continue with omeprazole 20 mg daily and follow antireflux measures. Recommended repeat colonoscopy in 5 years because of the prior history of colon polyps
[2023-05-22 08:19] VITALS: BP 115/77; PULSE 58; RESP 18
== END 2023-05-22 08:42 | disposition home or self-care (01) ==
LOC: ORWHC2ENDO 06:27
PROVIDERS: ATTEND Internal Medicine Gastroenterology
DX: Z12.11 Encounter for screening for malignant neoplasm of colon (principal); K62.1 Rectal polyp; K29.50 Unspecified chronic gastritis without bleeding; K31.7 Polyp of stomach and duodenum; K21.9 Gastro-esophageal reflux disease without esophagitis; K57.30 Diverticulosis of large intestine without perforation or abscess without bleeding; Z86.010 Personal history of colon polyps
CPT/HCPCS: 88305; 45380; 43239; J2704; J2001

== ENCOUNTER 2023-07-01 14:52 | Emergency (ER) | payer OTHER, MEDICARE, BC ==
[2023-07-01 15:14] VITALS: BP 134/78; PULSE 55; RESP 18; TEMP 98.2
[2023-07-01] MEDS ORDERED: IBUPROFEN 800 MG TAB PO STA (16:00)
[2023-07-01] MEDS ORDERED: ACETAMINOPHEN TAB 500 MG TAB PO STA (16:00)
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
== END 2023-07-01 16:23 | disposition home or self-care (01) ==
LOC: EC 14:52
DX: S16.1XXA Strain of muscle, fascia and tendon at neck level, initial encounter (principal); I10 Essential (primary) hypertension; E78.5 Hyperlipidemia, unspecified; Z79.82 Long term (current) use of aspirin; Z79.899 Other long term (current) drug therapy; V89.2XXA Person injured in unspecified motor-vehicle accident, traffic, initial encounter; Y92.410 Unspecified street and highway as the place of occurrence of the external cause
CPT/HCPCS: 99283

== ENCOUNTER → 2023-10-05 | Outpatient (CLI) | payer MEDICARE, BC ==
[2023-10-05 14:04] LABS: African American GFR (CKD) 74 (>60 ml/min/1.73 sqM); Blood Urea Nitrogen 20 mg/dL (9-20); Non-African American GFR(CKD) 64 (>60 ml/min/1.73 sqM)
--- NOTE | 2023-10-05 15:27 | CT ---
CTA CHEST EXAMINATION TYPE: CT angio chest DATE OF EXAM: 10/05/2023 INDICATION: aneurysm CT DLP: 870 mGycm, Automated exposure control for dose reduction was used. CONTRAST: Patient injected with 100 mL of Isovue 370. COMPARISON: 03/30/2023 TECHNIQUE: CT of the chest is performed on a spiral scan at 2 mm thick sections. Study is performed with intravenous contrast timed for evaluation for thoracic aneurysm. This will limit additional por tions of the evaluation. 3-D MIP images reconstructed by the technologist are reviewed on the [facility] er in the coronal and sagittal planes. FINDINGS: There is a 1.1 cm hypodensity within the left thyroid lobe. No persistent filling defects are evident to suggest an acute pulmonary embolism. No mediastinal or hilar adenopathy enlarged by CT criteria is evident. Scattered small shotty lympha denopathy is present. The ascending aorta diameter at the level of the main pulmonary artery is 4.2 cm is stable The main pulmonary artery diameter at the bifurcation is 2.6 cm. Mild coronary artery calcification is presen t. Lung windows are clear. Limited CT sections were through the upper abdomen. There may be a proximal right ureteral stone stefan suring 0.6 cm. Series 5 image 73. Nonobstructing renal stone is at the upper pole right kidney. IMPRESSION: 1. Ascending thoracic aortic aneurysm 4.2 cm. 2. There may be a proximal right ureteral stone measuring 0.6 cm. 3. Additional nonobstructing renal stones are in the upper pole right kidney. #4 hypodensity within the left thyroid lobe.
== END | disposition home or self-care (01) ==
LOC: RADCTMAIN 13:27
PROVIDERS: ATTEND Internal Medicine Interventional Cardiology
DX: I71.21 Aneurysm of the ascending aorta, without rupture (principal); N20.0 Calculus of kidney
CPT/HCPCS: 82565; 84520; 71275; 36415; Q9967

== ENCOUNTER → 2023-10-09 | Outpatient (CLI) | payer MEDICARE, BC | END | disposition home or self-care (01) | LOC: LABWHC1 09:14 | PROVIDERS: ATTEND Urology | DX: R97.20 Elevated prostate specific antigen [PSA] (principal) | CPT/HCPCS: 36415; 84153 ==

== ENCOUNTER → 2024-03-15 | Outpatient (CLI) | payer MEDICARE, BC ==
--- NOTE | 2024-03-15 20:47 | MR ---
EXAMINATION TYPE: MR Prostate wo/w con DATE OF EXAM: 03/15/2024 7:01 AM COMPARISON: None. CLINICAL INDICATION:Male, 73 years old with history of R97.20 elevated PSA; Elevated PSA. TECHNIQUE: Multi-planar, multi-sequence imaging of the pelvis is performed prior to and following the uncomplicated administration of bolus intravenous gadolinium. CONTRAST: 8.5 Gadavist Interpretive Criteria: PI-RADS v2.1 SERUM PSA: 2-2-24 = 8.8 2-16-23 = 7.7 SURGICAL PATHOLOGY: No data available. FINDINGS: Prostatic dimensions: 6.1 x 6.7 x 5.1 cm. Ellipsoid Volume:109.14 (PSA density=0.08 ng/mL/mL) CENTRAL GLAND (Central and Transition Zones/CZ+TZ): 5 mm high DWI and low ADC signal lesion in the right central mid gland. No definitive T2 sequence cor relate. (PI-RADS 3) Median lobe hypertrophy with protrusion into the base of the bladder. PERIPHERAL ZONE (PZ): Bilateral linear, indistinct wedgelike areas of low ADC, and low T2 signal, No evidence of masslike a bnormality, or localized perfusional hypervascularity, to further suggest a focus of clinically signi ficant prostate cancer. (PI-RADS 2) SEMINAL VESICLES (SV): Symmetric and unremarkable. PERIPROSTATIC TISSUES: Unremarkable. LYMPH NODES: No enlarged pelvic lymph node. REMAINING PELVIS: Bladder wall is within normal limits given distention. No abnormal free or organized intrapelvic fluid collection. No pathologic bowel dilation or mural thickening. No hernia visualized OSSEOUS STRUCTURES: No suspicious osseous abnormality. IMPRESSION: 1. PI-RADS 3 lesion right central mid gland high DWI and low ADC signal focus measuring 5 mm without T2 signal correlate. 2. Substantial BPH, estimated gland volume 109.14 mL. 3. No suspicious osseous lesion. No lymphadenopathy. No evidence of prostate adenocarcinoma involving the periprostatic tissues.
== END | disposition home or self-care (01) ==
LOC: RADMRIMAIN 06:02
PROVIDERS: ATTEND Urology
DX: N40.0 Benign prostatic hyperplasia without lower urinary tract symptoms (principal); R97.20 Elevated prostate specific antigen [PSA]
CPT/HCPCS: 72197; A9585

== ENCOUNTER → 2024-04-22 | Outpatient (CLI) | payer MEDICARE, BC | END | disposition home or self-care (01) | LOC: LABPRL 12:00 | PROVIDERS: ATTEND Urology | DX: Z53.9 Procedure and treatment not carried out, unspecified reason (principal) ==

== ENCOUNTER 2024-05-24 12:14 | Day surgery (SDC) | payer MEDICARE, BC ==
[2024-05-19 09:43] VITALS: BMI 26.5
--- NOTE | 2024-05-20 07:24 | P.GSHP ---
History of Present Illness H&P Date: 05/20/24 Chief Complaint: Elevated PSA level The patient is a 73-year-old white male with a persistently elevated PSA level. His father and brother had prostate cancer, and his brother is BRCA positive. Patient has undergone biopsies in 2010 and 2016, showing no evidence of malignan cy. However, a confirm MDX test was positive. An MRI of the prostate was recently obtained, revealing a prostate volume of 109 cc with a PI-RADS 3 lesion within the right central zone. He now comes for MRI fusion biopsies of the - Cardiovascular Cardiovascular: Reports high blood pressure - Genitourinary (Male) Genitourinary: Reports nocturia Past Medical History Past Medical History: Hyperlipidemia, Hypertension Additional Past Medical History / Comment(s): marfans syndrome, aortic root aneurysm History of Any Multi-Drug Resistant Organisms: None Reported Past Surgical History: Bowel Resection, Hernia Repair Additional Past Surgical History / Comment(s): groin bilateral ,polyps, bilat lens replaced 15-20 years ago Past Anesthesia/Blood Transfusion Reactions: No Reported Reaction Smoking Status: Never smoker Medications and Allergies Home Medications Medication Instructions Recorded Confirmed Type Aspirin [Adult Low Dose Aspirin EC] 81 mg PO DAILY 07/24/22 05/18/24 History Atorvastatin Calcium 40 mg PO HS 07/24/22 05/18/24 History Losartan Potassium 50 mg PO BID 07/24/22 05/18/24 History Omeprazole 40 mg PO DAILY 07/24/22 05/18/24 History hydroCHLOROthiazide 12.5 mg PO DAILY 07/24/22 05/18/24 History Allergies Allergy/AdvReac Type Severity Reaction Status Date / Time No Known Allergies Allergy Verified 05/18/24 15:09 Surgical - Exam - General well developed, well nourished, no distress - Respiratory no normal respiratory effort (Hold) - Genitourinary normal penis with no external lesions, testicles non-tender - Rectum Rectum: normal sphincter tone, no masses, other (Prostate enlarged but smooth) - Psychiatric oriented to time, oriented to person, oriented to place, speech is normal, memory intact Assessment and Plan (1) Elevated prostate specific antigen [PSA] Status: Acute Code(s): R97.20 - ELEVATED PROSTATE SPECIFIC ANTIGEN [PSA] SNOMED Code(s): 952784698 Plan: MRI fusion transrectal biopsies of the prostate. This has been reviewed in detail with the patient, who is aware of risks which include anesthesia, bleeding, and infection. Procedure will be performed by Dr. Myles.
[2024-05-24] MEDS: IV FLUID CONTINUATION 1,000 ML IV ONE (13:20)
[2024-05-24] MEDS: LACTATED RINGERS 1,000 ML IV SCH (13:34)
[2024-05-24 14:09] VITALS: TEMP 97.8
[2024-05-24] MEDS: GENTAMICIN 40 MG/ML 2 ML VIAL IM PRN (14:38)
[2024-05-24] MEDS ORDERED: LIDOCAINE 1% INJ 10MG/ML (20 ML MDV) ONE (15:26)
[2024-05-24] MEDS ORDERED: PROPOFOL 10 MG/ML 20 ML VIAL IV ONE (15:26)
--- NOTE | 2024-05-24 15:49 | P.OP ---
Date of Procedure: 05/24/24 Preoperative Diagnosis: Elevated PSA Postoperative Diagnosis: Same Procedure(s) Performed: MRI fusion biopsy of the prostate Implants: none Anesthesia: MAC Surgeon: Farooq Myles Estimated Blood Loss (ml): 1 Pathology: other (prostate biopsies) Condition: stable Indications for Procedure: The patient is a 73-year-old white male with a persistently elevated PSA level. His father and brother had prostate cancer, and his brother is BRCA positive. Patient has undergone biopsies in 2010 and 2015, showing no evidence of malignancy. However, a confirm MDX test was positive. An MRI of the prostate was recently obtained, revealing a prostate volume of 109 cc with a PI-RADS 3 lesion within the right central zone. He now comes for MRI fusion biopsies of the Description of Procedure: The patient was taken to the operating room and placed in the left lateral decubitus position. The [employer] transrectal ultrasound probe was placed intrarectally. It was then placed within the stand of the [employer] MRI/TRUS Fusion for Prostate Biopsy system. The prostate was imaged in both the axial and sagittal planes,L. Using the Biopsy gun, 4 biopsies were obtained from the target lesion, there were was one lesions, . The remaining 12 biopsies of the peripheral zone were obtained utilizing a standard template. Once the procedure was completed, the ultrasound probe was removed. The patient tolerated the procedure well was taken to the recovery room stable condition
[2024-05-24 16:02] VITALS: RESP 14
[2024-05-24 16:15] VITALS: BP 108/67; PULSE 63
== END 2024-05-24 16:39 | disposition home or self-care (01) ==
LOC: OR 12:14
PROVIDERS: ATTEND Urology
DX: N41.1 Chronic prostatitis (principal); N41.0 Acute prostatitis; N40.0 Benign prostatic hyperplasia without lower urinary tract symptoms; E78.5 Hyperlipidemia, unspecified; I10 Essential (primary) hypertension; Z80.42 Family history of malignant neoplasm of prostate; Z79.899 Other long term (current) drug therapy; Z79.82 Long term (current) use of aspirin
CPT/HCPCS: 55700; 88305; J1580; J2001; J2704

== ENCOUNTER → 2024-06-13 | Outpatient (CLI) | payer MEDICARE, BC ==
--- NOTE | 2024-06-13 18:31 | XR ---
EXAMINATION TYPE: XR KUB DATE OF EXAM: 06/13/2024 Comparison: 01/04/2013 Clinical History: 73-year-old male right-sided kidney stone, N20.1 Findings: Mild degenerative change in both hips. There is a 3 mm density at the left mid abdomen. No additional definite suspicious calcification is clearly identified though bowel content largely obscures the ri ght renal shadow. Mild stool particularly on the right side of the abdomen. Nonobstructive bowel gas pattern. Impression: Suspect a 3 mm left renal stone. Bowel content largely obscures the right renal shadow. [facility], , 06/13/2024 6:29 PM
== END | disposition home or self-care (01) ==
LOC: RADXRMAIN 15:38
PROVIDERS: ATTEND Urology
DX: N20.1 Calculus of ureter
CPT/HCPCS: 74018

== ENCOUNTER → 2024-08-26 | Outpatient (CLI) | payer MEDICARE, BC | END | disposition home or self-care (01) | LOC: LABWHC1 11:09 | PROVIDERS: ATTEND Urology | DX: R97.20 Elevated prostate specific antigen [PSA] (principal) | CPT/HCPCS: 36415; 84153 ==

== ENCOUNTER → 2024-09-20 | Outpatient (CLI) | payer MEDICARE, BC ==
[2024-09-20 15:40] LABS: African American GFR (CKD) 80 (>60 ml/min/1.73 sqM); Blood Urea Nitrogen 19 mg/dL (9-20); Non-African American GFR(CKD) 69 (>60 ml/min/1.73 sqM)
--- NOTE | 2024-09-20 20:20 | CT ---
EXAMINATION TYPE: CT angio chest DATE OF EXAM: 09/20/2024 5:50 PM COMPARISON: 10/05/2023 CLINICAL INDICATION: Male, 74 years old with history of I71.20, F/u for enlarged aortic root x20 year s, family history of MarFans TECHNIQUE: CT of the chest is performed on a spiral scan at 2 mm thick sections. Study is performed with intravenous contrast timed for evaluation for thoracic aortar. This will limit additional porti ons of the evaluation. 3-D MIP images reconstructed by the technologist are reviewed on the computer in the coronal and sagittal planes. Contrast used:100cc mL of Isovue 370 with IV Contrast, (none if empty) Oral contrast used: (none if empty) CT DLP: 1049.2 mGycm, Automated exposure control for dose reduction was used. FINDINGS: No persistent filling defects are evident to suggest an acute pulmonary embolism. No mediastinal or hilar adenopathy enlarged by CT criteria is evident. The ascending aorta diameter at the level of the main pulmonary artery is 5.2 cm. The main pulmonary artery diameter at the bifurcation is 2.8 cm. The ascending thoracic aorta at the aortic root is 4. 4 cm. The aortic arch appears normal. The descending thoracic aorta tapers normally throughout its vi sualized course. The thoracic aorta at the diaphragm measures 2.7 cm. Lung windows are clear. Limited CT sections were through the upper abdomen. The final image of the abdominal aorta within th e [id number] has some slight increasing size. A distal abdominal aortic aneurysm is not excluded. Consider abdominal screening ultrasound for aneurysm. IMPRESSION: 1. Ascending thoracic aortic aneurysm at the aortic root 4.4 cm. The aorta tapers towards the arch wi th a 4.2 cm aneurysm at the level of the main pulmonary artery. 2. Abdominal aortic aneurysm cannot be excluded out of the [id number]. There is some increasing ca liber of the normally sized abdominal aorta within the upper abdomen. Consider ultrasound screening f or abdominal aortic aneurysm. [facility], , 09/20/2024 8:17 PM
== END | disposition home or self-care (01) ==
LOC: RADCTMAIN 15:06
PROVIDERS: ATTEND Surgery
DX: I71.21 Aneurysm of the ascending aorta, without rupture (principal); Q87.40 Marfan syndrome, unspecified
CPT/HCPCS: 82565; 84520; 71275; 36415; Q9967

== ENCOUNTER → 2025-03-23 | Outpatient (CLI) | payer MEDICARE, BC | END | disposition home or self-care (01) | LOC: LABWHC1 07:50 | PROVIDERS: ATTEND Urology | DX: R97.20 Elevated prostate specific antigen [PSA] (principal) | CPT/HCPCS: 36415; 84153 ==